=== PATIENT | female | born 1995 | race Caucasian/White ===

== ENCOUNTER → 2024-02-24 | Outpatient (CLI) | payer OTHER, SELFPAY ==
[2024-02-24 10:22] LABS: Basophils # (Auto) 0.1 Thou/mm3 (0.0-0.2); Basophils % (Auto) 1 % (0-2.5); Eosinophils # (Auto) 0.2 Thou/mm3 (0.0-0.5); Eosinophils % (Auto) 2 % (0-10); Hematocrit 43.1 % (36.0-46.0); Hemoglobin 13.9 g/dL (12.0-16.0); Immature Granulocytes % (Auto) 1 % (0-0); Immature Granulocytes Auto 0.09 Thou/mm3 (0.00-0.00); Lymphocytes # (Auto) 2.9 Thou/mm3 (1.0-4.8); Lymphocytes % (Auto) 27 % (10-50); Mean Corpuscular HGB Conc 32.3 g/dl (31.0-37.0); Mean Corpuscular Hemoglobin 27.5 pg (25.0-35.0); Mean Corpuscular Volume 85 fL (80-100); Monocytes # (Auto) 0.7 Thou/mm3 (0.0-0.8); Monocytes % (Auto) 7 % (0-12); Neutrophils # (Auto) 6.7 Thou/mm3 (1.8-7.7); Neutrophils % (Auto) 63 % (37-80); Nucleated Red Blood Cell % 0 /100 WBC (0); Platelet Count 409 Thou/mm3 (140-440); Red Blood Count 5.05 Miln/mm3 (4.00-5.20); White Blood Count 10.8 Thou/mm3 (3.6-11.0)
[2024-02-24 10:39] LABS: Glucose Estimated Average 126 mg/dL (80-131)
[2024-02-24 10:52] LABS: Alanine Aminotransferase 20 U/L (10-49); Albumin, Serum 5.2 gm/dL (3.5-5.0); Albumin/Globulin Ratio 1.9 (1.2-2.2); Alkaline Phosphatase 65 U/L (46-116); Anion Gap 10 (7-16); Aspartate Amino Transferase 14 U/L (0-34); BUN/Creatinine Ratio 17 Ratio (12-20); Bilirubin,Total 0.3 mg/dL (0.3-1.2); Blood Urea Nitrogen 12 mg/dL (9-23); Calcium 10.3 mg/dL (8.3-10.6); Calcium (Corrected) 10.3 mg/dL (8.5-10.1); Chloride 104 mMol/L (98-107); Creatinine (Component) 0.7 mg/dL (0.6-1.3); Globulin 2.8 gm/dL (2.3-3.5); Glucose 119 mg/dL (74-106); Osmolality,Calculated 280 (275-295); Potassium 4.1 mMol/L (3.4-5.1); Sodium 140 mMol/L (136-145); eGFR > 60 See Note
== END | disposition home or self-care (01) ==
LOC: COPL 09:11
PROVIDERS: PCP Family Medicine; Referring Provider Specialist; Visit Provider Specialist
DX: E11.9 Type 2 diabetes mellitus without complications (principal)
CPT/HCPCS: 36415; 80053; 83036; 85025

== ENCOUNTER → 2024-08-07 | Outpatient (CLI) | payer OTHER, SELFPAY ==
[2024-08-07 15:28] LABS: Collection Type, Urine Clean Catch
[2024-08-07 16:37] LABS: Basophils # (Auto) 0.1 Thou/mm3 (0.0-0.2); Basophils % (Auto) 2 % (0-2.5); Eosinophils # (Auto) 0.2 Thou/mm3 (0.0-0.5); Eosinophils % (Auto) 2 % (0-10); Hematocrit 39.6 % (36.0-46.0); Hemoglobin 13.2 g/dL (12.0-16.0); Immature Granulocytes % (Auto) 1 % (0-0); Immature Granulocytes Auto 0.05 Thou/mm3 (0.00-0.00); Lymphocytes # (Auto) 2.7 Thou/mm3 (1.0-4.8); Lymphocytes % (Auto) 35 % (10-50); Mean Corpuscular HGB Conc 33.3 g/dl (31.0-37.0); Mean Corpuscular Hemoglobin 27.8 pg (25.0-35.0); Mean Corpuscular Volume 83 fL (80-100); Monocytes # (Auto) 0.5 Thou/mm3 (0.0-0.8); Monocytes % (Auto) 7 % (0-12); Neutrophils # (Auto) 4.1 Thou/mm3 (1.8-7.7); Neutrophils % (Auto) 53 % (37-80); Nucleated Red Blood Cell % 0 /100 WBC (0); Platelet Count 390 Thou/mm3 (140-440); RDW Standard Deviation 38.5 fL (36.4-46.3); Red Blood Count 4.75 Miln/mm3 (4.00-5.20); White Blood Count 7.6 Thou/mm3 (3.6-11.0)
[2024-08-07 16:52] LABS: Glucose Estimated Average 117 mg/dL (80-131); Hemoglobin A1C 5.7 % Hgb (4.8-6.0)
[2024-08-07 16:55] LABS: Creatinine MALB Rnd Ur > 245 mg/dL (30-125); Microalbumin Creat Ratio 142 mg/gCrea (<30); Microalbumin, Random Urine 348 mg/L (0-300)
[2024-08-07 16:59] LABS: Alanine Aminotransferase 23 U/L (10-49); Albumin, Serum 4.8 gm/dL (3.5-5.0); Albumin/Globulin Ratio 1.9 (1.2-2.2); Alkaline Phosphatase 56 U/L (46-116); Anion Gap 11 (7-16); Aspartate Amino Transferase 19 U/L (0-34); BUN/Creatinine Ratio 15 Ratio (12-20); Bilirubin,Total 0.6 mg/dL (0.3-1.2); Blood Urea Nitrogen 12 mg/dL (9-23); Calcium 9.4 mg/dL (8.3-10.6); Calcium (Corrected) 9.4 mg/dL (8.5-10.1); Carbon Dioxide 23.8 mMol/L (20.0-31.0); Cardiac Risk Estimate 4.5 RATIO (3.7-5.6); Chloride 103 mMol/L (98-107); Cholesterol 211 mg/dL (132-200); Creatinine (Component) 0.8 mg/dL (0.6-1.3); Globulin 2.5 gm/dL (2.3-3.5); Glucose 116 mg/dL (74-106); HDL Cholesterol 47 mg/dL (40-60); LDL Cholesterol,Calculated 127 mg/dL (0-130); Osmolality,Calculated 276 (275-295); Potassium 4.4 mMol/L (3.4-5.1); Sodium 138 mMol/L (136-145); Total Protein 7.3 gm/dL (5.7-8.2); Triglycerides 185 mg/dL (30-150); eGFR > 60 See Note
[2024-08-07 17:02] LABS: Bacteria,Urine Rare; Bilirubin,Urine Negative (Negative); Blood,Urine 3+ (Negative); Glucose, Urine Negative (Negative); Ketones,Urine Negative (Negative); Leukocyte Esterase,Urine Negative (Negative); Nitrite,Urine Negative (Negative); PH,Urine 5.5 (5.0-7.0); Protein,Urine 1+ (Neg - Trace); RBC,Urine 2613 /hpf (0-3); Squamous Epithelial Cell,Urine 18 /hpf (0-5); Urobilinogen,Urine Negative mg/dL (0.0-1.0); WBC,Urine 11 /hpf (0-5)
[2024-08-07 17:15] LABS: Clarity,Urine Hazy (Clear/Hazy); Color,Urine Lt-Yellow (Lt Yel-Yel)
== END | disposition home or self-care (01) ==
LOC: COPL 14:05
PROVIDERS: PCP Family Medicine; Referring Provider Family Medicine; Visit Provider Family Medicine
DX: E11.65 Type 2 diabetes mellitus with hyperglycemia (principal)
CPT/HCPCS: 36415; 80053; 80061; 81001; 82043; 82570; 83036; 85025

== ENCOUNTER 2024-12-08 22:06 | Emergency (ER) | payer OTHER, SELFPAY ==
[2024-12-08 22:09] VITALS: BMI 38.3
[2024-12-08 22:15] VITALS: BP 152/93; PULSE 110; RESP 18; TEMP 37.3; O2SAT 99
--- NOTE | 2024-12-08 22:24 | EKG_ITS ---
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
--- NOTE | 2024-12-08 22:25 | PD.EDCHEST ---
ED Chest Pain RME/HPI General Chief Complaint: Chest Pain Stated Complaint: CHEST THIGHTNESS, POSTERIOR HEAD PAIN Time Seen by Provider: 12/08/24 22:11 Source: patient and family Arrival date/time: 12/08/24 22:06 Mode of arrival: ambulatory Related Data Previous Rx's ?Medication ?Instructions ?Recorded diphenoxylate-atropine 2.5 1 tab PO Q6H PRN diarrhea #7 tabs 08/08/17 mg-0.025 mg tablet (Lomotil) Allergies Allergy/AdvReac Type Severity Reaction Status Date / Time No Known Allergies Allergy Unknown Verified 12/08/24 22:08 Course Orders Category Date Time Status EKG (ED ONLY) *Do not use* NOW Care 12/08/24 22:24 Active EKG (ED Only) Stat Exams 12/08/24 22:24 Ordered US abdomen limited Stat Exams 12/08/24 22:24 Ordered CBC Stat Lab 12/08/24 22:24 Ordered CMP [Comprehensive Metabolic Panel] Stat Lab 12/08/24 22:24 Ordered HCG,Qualitative Serum Stat Lab 12/08/24 22:24 Ordered Lipase Stat Lab 12/08/24 22:24 Ordered Troponin I Stat Lab 12/08/24 22:24 Ordered Aspirin Chew Med 12/08/24 22:24 Once 81 mg PO X1 ONE Vital Signs Vital signs: Vital Signs Temperature 99.2 F 12/08/24 22:15 Pulse Rate 110 H 12/08/24 22:15 Respiratory Rate 18 12/08/24 22:15 Blood Pressure 152/93 H 12/08/24 22:15 Pulse Oximetry (%) 99 12/08/24 22:15 Oxygen Delivery Method Room Air 12/08/24 22:15 Chest Pain MDM Narrative MDM Narrative:: Patient is a 29-year-old female with medical history notable for diabetes states in the emergency department concerns for acute onset chest tightness, epigastric pain. Vital signs and exam as listed. Concern for ACS arrhythmia electrolyte abnormality pancreatitis, cholelithiasis among others. Ordered labs EKG right upper quadrant ultrasound. Also offered medication for symptom relief. At this time excepted out of transition care over to oncoming provider. Patient was pending results of her workup and safe dispo. Patient data External records reviewed:: None Clinical information provided by:: patient and spouse Social determinants that could affect healthcare access:: none Patient has the following chronic illnesses:: None How is presenting disease/condition affected by chronic disease/condition?: no chronic disease Evaluation data The following diagnostics were reviewed and interpreted by me:: lab results and radiology exam(s) Lab and/or radiology exams considered but not ordered:: None Interpretation Summary: See MDM Medications / Prescriptions Medications or Prescriptions considered but not ordered:: None Medication administrations:: Medication Administration History Aspirin (Aspirin 81 Mg Chew) 81 mg PO X1 ONE Stop: 12/08/24 22:25 See above Consultations Consultation(s) initiated? (list below): No Discharge Plan Prescriptions/Referrals Prescriptions/Med Rec: No Action diphenoxylate-atropine [Lomotil] 2.5-0.025 mg tablet 1 tab PO Q6H PRN (Reason: diarrhea) Qty: 7 0RF Patient/Caregiver Discharge Instructions Print Language: Lao
--- NOTE | 2024-12-08 22:25 | PD.EDCHEST ---
ED Chest Pain RME/HPI General Chief Complaint: Chest Pain Stated Complaint: CHEST THIGHTNESS, POSTERIOR HEAD PAIN Time Seen by Provider: 12/08/24 22:11 Source: patient Arrival date/time: 12/08/24 22:06 Mode of arrival: ambulatory RME / HPI RME / HPI narrative: DR. CARNEY MAIN ED EVALUATION: 29 y/o female with Hx of Type II DM presents with sudden onset super tight chest pain with associated diaphoresis and clamminess while sitting in the car x 1 day. No similar symptoms in the past. Denies cough, fever, runny nose, BLE edema, and dysuria. Patient's DM is well controlled through diet, exercise, and Metformin. Blood sugar at time of episode was 94 mg/dL. In addition, patient also reports 3-4 weeks of cramping to the BL calves and restlessness, as well as occasional BL flank pain. Denies any recent travel, with the exception of [place] in August. Denies any sick contacts or any allergies to medications. No other concerns or complaints expressed at this time. Related Data Previous Rx's ?Medication ?Instructions ?Recorded diphenoxylate-atropine 2.5 1 tab PO Q6H PRN diarrhea #7 tabs 08/08/17 mg-0.025 mg tablet (Lomotil) Allergies Allergy/AdvReac Type Severity Reaction Status Date / Time No Known Allergies Allergy Unknown Verified 12/08/24 22:08 Review of Systems Review of Systems Systems Reviewed: All systems reviewed, normal except as documented Past Medical History Past Medical History GASTROINTESTINAL: Positive Obesity ENDOCRINE: Positive Diabetes Mellitus Type 2 ED Exam Narrative Physical exam: GEN. APPEARANCE: The patient is alert awake oriented X-3 in no distress, lying down comfortably, does not look ill/toxic. Patient has good eye contact. Patient is cooperative. VITALS: All vitals were reviewed and the pulse ox is 99% on room air which is normal according to my interpretation. HEENT: Normocephalic, atraumatic. Pupils are equal and reactive. Oral mucosa is moist. Patent Nares NECK: Supple, nontender, no thyromegaly, no meningismus, no JVD CHEST: Symmetrical, atraumatic, and with equal expansion , Nontender on palpation no deformity and no crepitus. CARDIOVASCULAR: Heart regular rhythm no murmur or gallop rub or extra beats. LUNGS: Clear to auscultation bilaterally with symmetrical chest rise. No laboring tachypnea or wheezing. No intercostal subcostal retraction. No rales and no rhonchi. ABDOMEN: Soft, flat, nontender to palpation, no guarding or rebound tenderness. There are no abnormal masses palpated. Active and normal bowel sounds. EXTREMITIES: Nontender. No edema. No cyanosis. Patient is able to move all 4 extremities well, with full ROM and good CSM. SKIN: Warm and dry, no jaundice or rashes noted. MUSCULOSKELETAL: No lumbar or midline bony tenderness. There is no CVA tenderness. No paraspinal muscle spasm or tenderness. NEURO: Patient is GÓMEZ x 4, Cranial nerves II through XII grossly intact. There is no focal neurologic deficits noted. GCS is 15, PNS and VP DIRECTOR OF FINANCE appear grossly intact. PSYCHIATRIC: Patient is in normal mood and affect. Course Quality Measures none Orders Category Date Time Status EKG (ED ONLY) *Do not use* NOW Care 12/08/24 22:24 Completed CXR [XR chest 1V] Stat Exams 12/08/24 22:26 Completed EKG (ED Only) Stat Exams 12/08/24 22:24 Draft US abdomen limited Stat Exams 12/08/24 22:27 Completed CBC Stat Lab 12/08/24 22:45 Completed CMP [Comprehensive Metabolic Panel] Stat Lab 12/08/24 22:45 Completed HCG,Qualitative Serum Stat Lab 12/08/24 22:45 Completed Lipase Stat Lab 12/08/24 22:45 Completed Troponin I Stat Lab 12/08/24 22:45 Completed ALPRazoLAM [Xanax] Med 12/08/24 22:57 Discontinued 0.5 mg PO X1 ONE Aspirin Chew Med 12/08/24 22:24 Discontinued 81 mg PO X1 ONE Vital Signs Vital signs: Vital Signs Temperature 99.2 F 12/08/24 22:15 Pulse Rate 110 H 12/08/24 22:15 Respiratory Rate 18 12/08/24 22:15 Blood Pressure 152/93 H 12/08/24 22:15 Pulse Oximetry (%) 99 12/08/24 22:15 Oxygen Delivery Method Room Air 12/08/24 22:15 Chest Pain MDM Narrative MDM Narrative:: Scribe Attestation: I, Inge Steinberg, am scribing for and in the presence of Dr. Carney. Provider Notation: Although this document has been carefully reviewed, there may still be some phonetic and other typographical errors. These errors are purely grammatical due to imperfections in the software program and should not be construed in any way to compromise the substance of the patient's medical care during this visit. 23:00 - Care assumed by Dr. Millan (emergency physician). Past medical, surgical, social and family history reviewed. Vitals and home medications reviewed. Results and treatment plan discussed. They will assume the care of the patient at this time and will follow the patient, pending labs and abdominal US. Patient data External records reviewed:: [facility] previous records (No recent ED records available for review.) Clinical information provided by:: patient Social determinants that could affect healthcare access:: none Patient has the following chronic illnesses:: Obesity, Type II DM How is presenting disease/condition affected by chronic disease/condition?: exacerbated by Evaluation data The following diagnostics were reviewed and interpreted by me:: lab results, radiology exam(s) and EKG tracing(s) (EKG done at 22:30, Sinus tachycardia, 106 bpm, normal intervals, non-specific T-wave changes, not a cardiac alert. - Interpreted by Dr. Armida Carney.) Lab and/or radiology exams considered but not ordered:: None Interpretation Summary: RADIOLOGY Chest X-Ray: FINDINGS: Normal heart size Lungs are clear. Osseous ruptures are intact IMPRESSION: No active disease Medications / Prescriptions Medications or Prescriptions considered but not ordered:: None Medication administrations:: Medication Administration History Discontinued Medications Alprazolam (Alprazolam 0.25 Mg Tablet) 0.5 mg PO X1 ONE Stop: 12/08/24 22:58 Last Admin: 12/08/24 23:25 Dose: 0.5 mg Documented By: PEGGY Aspirin (Aspirin 81 Mg Chew) 81 mg PO X1 ONE Stop: 12/08/24 22:25 Last Admin: 12/08/24 22:33 Dose: 81 mg Documented By: OA See above if any Consultations Consultation(s) initiated? (list below): No Diagnosis Chest Pain Differential Diagnosis: stable angina, unstable angina pectoris, atypical chest pain, st elevation myocardial infarction, costochondritis, chest pain and other (Anxiety Disorder) Most likely diagnosis given after review of the tests above:: abdominal pain Admission Indicated Admission indicated?: not indicated Explain why admission is indicated or not indicated:: Patient does not meet admission criteria. Admission Request Was there a request for admission?: No Disposition Plan Disposition Plan: other (specify) (Signed out to Dr. Millan at 11 pm.) Discharge Plan Plan Patient Disposition: HOME (Self Care) Prescriptions/Referrals Prescriptions/Med Rec: No Action diphenoxylate-atropine [Lomotil] 2.5-0.025 mg tablet 1 tab PO Q6H PRN (Reason: diarrhea) Qty: 7 0RF Problem List Clinical Impression: Chest pain, Gallstones Patient/Caregiver Discharge Instructions Discharge Activity: activity as tolerated Education Materials: ED Chest Pain, Uncertain Cause, ED Gallstones with Biliary Colic Additional Instructions: Discharge instructions from Dr. Millan: 1. After extensive evaluation, there is no life-threatening condition.? Such as heart attack. 2. Your symptoms may be due to underlying stress or anxiety or nerves.? This is fairly common. Since you declined any medication for anxiety, none prescribed. 3. Your ultrasound showed gallstones. See attached handout. You need gallbladder to help digest fatty foods, try to avoid if possible. 4. See a private doctor on 12/10/2024 for recheck. To make sure there is no serious underlying heart condition, ask to help you get more tests for your heart that cannot be done here in the ER.? Such as Holter Monitor (cardiac monitoring at home from a day to even a month), heart stress test (on treadmill or with medication), echocardiogram (imaging of your heart structures), heart catherization (checking for blockages in your heart arteries), and a referral to see a Clinical Services Manager. Discuss elective surgical removal of your gallbladder. 5. Seek immediate medical care with worsening or with any concerns.?? Print Language: Czech Stand Alone Forms: Wendy Award Info., Patient Portal Info Letter
--- NOTE | 2024-12-08 22:26 | XR_ITS ---
EXAMINATION: PA chest single view TECHNIQUE: Upright PA chest single view Date and time: December 08 2024 1034 hours INDICATIONS: Cardiac palpitations today. FINDINGS: Normal heart size Lungs are clear. Osseous ruptures are intact IMPRESSION: No active disease
--- NOTE | 2024-12-08 22:27 | XR_ITS ---
Examination: Abdomen sonogram, Limited Date and time of exam: December 08, 2024, 11:11 p.m. INDICATIONS: Epigastric pain abdominal pain today Technique: Real-time franco scale transabdominal sonographic images of the upper abdomen obtained. Findings: Gallstones Gallbladder wall borderline thickened 0.4 cm No edema Normal common bile duct 0.3 cm Pancreatic head 3.5 cm Liver 18.3 cm fatty infiltration Normal hepatopetal portal venous flow Patent IVC IMPRESSION: Cholelithiasis, gallbladder wall 0.4 cm, if cholecystitis is a clinical consideration, recommend HIDA scan or MRCP follow-up Moderate hepatomegaly fatty infiltration no focal liver lesions
[2024-12-08] MEDS: ASPIRIN 81 MG CHEW PO (22:33)
[2024-12-08 22:58] LABS: Basophils # (Auto) 0.1 Thou/mm3 (0.0-0.2); Basophils % (Auto) 1 % (0-2.5); Eosinophils # (Auto) 0.2 Thou/mm3 (0.0-0.5); Eosinophils % (Auto) 2 % (0-10); Hematocrit 40.3 % (36.0-46.0); Hemoglobin 13.0 g/dL (12.0-16.0); Immature Granulocytes Auto 0.09 Thou/mm3 (0.00-0.00); Lymphocytes # (Auto) 3.4 Thou/mm3 (1.0-4.8); Lymphocytes % (Auto) 30 % (10-50); Mean Corpuscular HGB Conc 32.3 g/dl (31.0-37.0); Mean Corpuscular Hemoglobin 27.2 pg (25.0-35.0); Mean Corpuscular Volume 84 fL (80-100); Monocytes # (Auto) 0.7 Thou/mm3 (0.0-0.8); Monocytes % (Auto) 6 % (0-12); Neutrophils # (Auto) 6.7 Thou/mm3 (1.8-7.7); Neutrophils % (Auto) 60 % (37-80); Nucleated Red Blood Cell # 0.00 Thou/mm3 (0.00-0.00); Nucleated Red Blood Cell % 0 /100 WBC (0); Platelet Count 352 Thou/mm3 (140-440); RDW Standard Deviation 38.8 fL (36.4-46.3); Red Blood Count 4.78 Miln/mm3 (4.00-5.20); White Blood Count 11.2 Thou/mm3 (3.6-11.0)
--- NOTE | 2024-12-08 23:00 | PD.EDADDENDU ---
Emergency Room Addendum <Inge Steinberg - Last Filed: 12/09/24 00:13> Addendum Narrative: I took over the care from previous shift physician at 11 PM on 12/08/2024. See previous notes for complete H & P and ED course. I reviewed all diagnostic test results. My interpretation of the EKG is My interpretation of the chest x-ray is NAD. My review of the Abdomen US report is Cholelithiasis, gallbladder wall 0.4 cm, if cholecystitis is a clinical consideration, recommend HIDA scan or MRCP follow-up. Moderate hepatomegaly fatty infiltration no focal liver lesions. Blood tests and urine tests Diagnoses include: Gall Stones Chest Pain Treatment here included: Xanax 0.5 mg Based on my best medical judgment, made decision no further evaluation or treatment indicated at this time. Patient understands and agrees to the discharge instructions customized and printed, see below. Discharge instructions from Dr. Millan: 1. After extensive evaluation, there is no life-threatening condition. Such as heart attack. 2. Your symptoms may be due to underlying stress or anxiety or nerves. This is fairly common. Since you declined any medication for anxiety, none prescribed. 3. Your ultrasound showed gallstones. See attached handout. You need gallbladder to help digest fatty foods, try to avoid if possible. 4. See a private doctor on 12/10/2024 for recheck. To make sure there is no serious underlying heart condition, ask to help you get more tests for your heart that cannot be done here in the ER. Such as Holter Monitor (cardiac monitoring at home from a day to even a month), heart stress test (on treadmill or with medication), echocardiogram (imaging of your heart structures), heart catherization (checking for blockages in your heart arteries), and a referral to see a Restaurant And Bar Manager. Discuss elective surgical removal of your gallbladder. 5. Seek immediate medical care with worsening or with any concerns. Doroteo Millan MD <Doroteo Millan MD - Last Filed: 12/09/24 01:38> Addendum Narrative: I took over the care from previous shift physician, Dr. Goel, at 11 PM on 12/08/2024. See previous notes for complete H & P and ED course. I reviewed all diagnostic test results. My interpretation of the EKG is sinus rhythm with no acute ST?T changes. My interpretation of the chest x-ray is NAD. My review of the Abdomen US report is cholelithiasis. Blood tests unremarkable. Diagnoses include: Chest pain due to anxiety Asymptomatic gallstones Treatment here included: Xanax 0.5 mg She felt much better. Recommended outpatient care. Based on my best medical judgment, made decision no further evaluation or treatment indicated at this time. Patient understands and agrees to the discharge instructions customized and printed, see below. Discharge instructions from Dr. Millan: 1. After extensive evaluation, there is no life-threatening condition. Such as heart attack. 2. Your symptoms may be due to underlying stress or anxiety or nerves. This is fairly common. Since you declined any medication for anxiety, none prescribed. 3. Your ultrasound showed gallstones. See attached handout. You need gallbladder to help digest fatty foods, try to avoid if possible. 4. See a private doctor on 12/10/2024 for recheck. To make sure there is no serious underlying heart condition, ask to help you get more tests for your heart that cannot be done here in the ER. Such as Holter Monitor (cardiac monitoring at home from a day to even a month), heart stress test (on treadmill or with medication), echocardiogram (imaging of your heart structures), heart catherization (checking for blockages in your heart arteries), and a referral to see a Restaurant And Bar Manager. Discuss elective surgical removal of your gallbladder. 5. Seek immediate medical care with worsening or with any concerns. Doroteo Millan MD
[2024-12-08 23:05] LABS: HCG,Qualitative Serum Negative
[2024-12-08 23:12] LABS: Alanine Aminotransferase 22 U/L (10-49); Albumin, Serum 4.9 gm/dL (3.5-5.0); Albumin/Globulin Ratio 2.0 (1.2-2.2); Alkaline Phosphatase 57 U/L (46-116); Anion Gap 11 (7-16); Aspartate Amino Transferase 20 U/L (0-34); BUN/Creatinine Ratio 13 Ratio (12-20); Bilirubin,Total 0.4 mg/dL (0.3-1.2); Blood Urea Nitrogen 10 mg/dL (9-23); Calcium 9.4 mg/dL (8.3-10.6); Calcium (Corrected) 9.4 mg/dL (8.5-10.1); Carbon Dioxide 23.7 mMol/L (20.0-31.0); Chloride 105 mMol/L (98-107); Creatinine (Component) 0.8 mg/dL (0.6-1.3); Estimated Creatinine Clearance 131.0 mL/min (>60); Globulin 2.5 gm/dL (2.3-3.5); Glucose 144 mg/dL (74-106); Lipase 34 U/L (12-53); Osmolality,Calculated 281 (275-295); Potassium 4.1 mMol/L (3.4-5.1); Sodium 140 mMol/L (136-145); Total Protein 7.4 gm/dL (5.7-8.2); Troponin I < 0.002 ng/mL (0.0-0.045); eGFR > 60 See Note
[2024-12-09 00:10] VITALS: RESP 18
== END 2024-12-09 00:10 | disposition home or self-care (01) ==
PROVIDERS: Emergency Medicine; Emergency Provider Emergency Medicine; PCP Family Medicine
DX: R07.9 Chest pain, unspecified (principal); E11.9 Type 2 diabetes mellitus without complications
CPT/HCPCS: 36415; 71045; 76705; 80053; 83690; 84484; 84703; 85025; 93005; 99283; A9270

== ENCOUNTER → 2025-01-04 | Outpatient (CLI) | payer OTHER, SELFPAY ==
[2025-01-04 17:21] LABS: Glucose Estimated Average 123 mg/dL (80-131); Hemoglobin A1C 5.9 % Hgb (4.8-6.0)
== END | disposition home or self-care (01) ==
LOC: COPL 16:15
PROVIDERS: PCP Family Medicine; Referring Provider Family Medicine; Visit Provider Family Medicine
DX: E11.65 Type 2 diabetes mellitus with hyperglycemia (principal)
CPT/HCPCS: 36415; 83036